=== PATIENT | female | born 1995 ===

== ENCOUNTER 2021-08-30 06:55 | Inpatient (IN) | payer OTHER ==
[~2021-08-30] VITALS: Ht 157.5 cm; Wt 73.9 kg
[2021-08-30] MEDS ORDERED: PRENATAL CAPLE1 EAC1 PO (09:51)
[2021-08-30] MEDS ORDERED: ZYRTEC10 MG PO (09:51)
== END 2021-09-01 15:42 | disposition home or self-care (01) | DRG 807 ==
LOC: LDR 06:55 → OB/GYN 19:49
PROVIDERS: ADMIT Obstetrics & Gynecology; ATTEND Obstetrics & Gynecology
PROC: 10E0XZZ Delivery of Products of Conception, External Approach (ICD-10-PCS; principal; 2021-08-30)
PROC: 4A1HXFZ Monitoring of Products of Conception, Cardiac Rhythm, External Approach (ICD-10-PCS; 2021-08-30)
DX: O80 Encounter for full-term uncomplicated delivery (principal); Z37.0 Single live birth; Z3A.39 39 weeks gestation of pregnancy